=== PATIENT | female | born 1970 | race Caucasian/White ===

== ENCOUNTER → 2019-09-24 11:14 | Outpatient (CLI) | payer OTHER, SELFPAY ==
--- NOTE | ~2019-09-24 | MR_ITS ---
EXAMINATION: MR knee RT wo con DATE: 09/24/2019 11:49 INDICATION: Right knee pain TECHNIQUE: Magnetic resonance imaging (MRI) of the right knee was performed without intravenous contr ast. Sequences included coronal PD-weighted FSE, coronal PD-weighted FS FSE, sagittal T2-weighted FS E, sagittal PD-weighted FS FSE and axial PD weighted fat saturated FSE. COMPARISON: None. FINDINGS: Medial compartment: Small radial tear along the inner free edge of the posterior horn of the medial meniscus. Articular c artilage is normal. Lateral compartment: Lateral meniscus is normal. Mild chondral surface regularity along the central aspect of the lateral tibial plateau.. Patellofemoral compartment: Partial-thickness cartilage loss with deep fissuring at the medial facet and trochlear groove, the la tter with mild underlying subarticular edema. There is additional deep chondral ulceration at the inf erior aspect of the lateral patellar facet also with mild underlying subarticular edema. Deep chondra l ulceration extending a band across the inferior aspect of the trochlear groove and medial trochlea with irregular underlying articular cortex and mild subarticular edema and cystic changes. Ligaments and tendons: Anterior and posterior cruciate ligaments are normal. The medial collateral ligament and fibular nina ateral ligament complex are normal. The extensor mechanism is normal. The visualized medial and later al hamstring tendons as well as the iliotibial band are normal. Fluid: Physiologic amount of fluid in the joint space. No loose osteochondral bodies identified. Small Flood 's cyst. Osseous/other: Bone alignment is normal. No fracture or pathologic marrow replacing process. IMPRESSION: 1. Small radial tear involving the inner third of the posterior horn of the medial meniscus. 2. 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 Minimal osteoarthritis with low to moderate grade chondromalacia at the lateral compartment. 3. Small Flood's cyst. Reviewed, dictated and finalized at location A. IMPRESSION: 1. Small radial tear involving the inner third of the posterior horn of the med ial meniscus. 2. Mild to moderate osteoarthritis with high-grade chondral malacia in the johnson llofemoral compartment. Minimal osteoarthritis with low to moderate grade chond romalacia at the lateral compartment. 3. Small Flood's cyst.
== END ==
DX: M71.21 Synovial cyst of popliteal space [Baker], right knee (principal); M17.11 Unilateral primary osteoarthritis, right knee
CPT/HCPCS: 73721

== ENCOUNTER → 2019-11-16 10:15 | Outpatient (CLI) | payer OTHER, SELFPAY ==
--- NOTE | ~2019-11-16 | MM_ITS ---
EXAMINATION: MM screening [facility] BI w ameena HISTORY: Screening mammogram TECHNIQUE: Craniocaudal and mediolateral oblique 3-D tomosynthesis images were obtained and synthetic 2-D images were generated. CAD analysis was submitted and interpreted. COMPARISON: 11/03/2018, 11/04/2017, 11/09/2017, 08/16/2016 BREAST PARENCHYMAL COMPOSITION: There are scattered areas of fibroglandular density. FINDINGS: There is no evidence of suspicious mass, calcification, or architectural distortion to sugg est malignancy in either breast. There has been no suspicious interval change. IMPRESSION: 1. No mammographic evidence of malignancy. 2. Recommend routine screening mammography in one year. BI-RADS Category 1: Negative Reviewed, dictated and finalized at location A.
== END ==
PROVIDERS: Visit Provider Obstetrics & Gynecology Gynecology
DX: Z12.31 Encounter for screening mammogram for malignant neoplasm of breast (principal)
CPT/HCPCS: 77063; 77067

== ENCOUNTER → 2021-08-17 09:03 | Outpatient (CLI) | payer OTHER, SELFPAY ==
--- NOTE | ~2021-08-17 | MM_ITS ---
EXAMINATION: MM screening el BI w ameena HISTORY: Screening mammogram TECHNIQUE: Craniocaudal and mediolateral oblique 3-D tomosynthesis images were obtained and synthetic 2-D images were generated. CAD analysis was submitted and interpreted. COMPARISON: 11/12/2019, 11/03/2018 bilateral screening mammogram examinations BREAST PARENCHYMAL COMPOSITION: There are scattered areas of fibroglandular density. FINDINGS: There is no evidence of suspicious mass, calcification, or architectural distortion to sugg est malignancy in either breast. There has been no suspicious interval change. IMPRESSION: 1. No mammographic evidence of malignancy. 2. Recommend routine screening mammography in one year. BI-RADS Category 1: Negative Reviewed, dictated and finalized at location A.
== END ==
PROVIDERS: PCP Internal Medicine; Visit Provider Obstetrics & Gynecology Gynecology
DX: Z12.31 Encounter for screening mammogram for malignant neoplasm of breast (principal)
CPT/HCPCS: 77063; 77067

== ENCOUNTER 2021-10-01 13:43 | Emergency (ER) | payer OTHER, SELFPAY ==
--- NOTE | 2021-10-01 13:57 | ED.GENADULT ---
HPI - General Adult General Chief complaint: Urogenital-Female Stated complaint: uti complaint Time Seen by Provider: 10/01/21 14:15 Source: patient Mode of arrival: ambulatory Limitations: no limitations History of Present Illness HPI narrative: 51-year-old female patient presents to the [facility] with complaints of pain and burning on urination that started yesterday. Patient states she was treated at the end of August for UTI with Bactrim. Patient states they did not do a culture when she was treated in August. Patient states she does get UTIs frequently. Patient states she also had a UTI and colitis at the beginning of the year which she was treated for. Patient states its not the same pain as when she had the kidney stone. Patient states she did have blood in her urine but denies any low back pain. Denies any fevers, body aches or chills. Denies any lower abdominal pain. Related Data Home Medications Medication Instructions Recorded Confirmed desogestrel 0.15 mg-ethinyl 1 tablet DAILY 10/01/21 10/01/21 estradiol 0.03 mg tablet (Apri) Allergies Allergy/AdvReac Type Severity Reaction Status Date / Time No Known Allergies Allergy Verified 10/01/21 14:12 Review of Systems Review of Systems: CONSTITUTIONAL: Denies fever, chills, or sweats. EYES: Denies visual changes, redness, or discharge. ENT: Denies rhinorrhea, congestion, sore throat, or otalgia. CARDIOVASCULAR: Denies chest pain, palpitations, or edema. RESPIRATORY: Denies cough or dyspnea. GASTROINTESTINAL: Denies abdominal pain, nausea, vomiting, or diarrhea. GENITOURINARY: Positive dysuria or hematuria. SKIN: Denies rash or itching. MUSCULOSKELETAL: Denies back pain, joint pain, or myalgia. NEUROLOGIC: Denies headache, numbness, or weakness. PSYCHIATRIC: Denies anxiety or depression. [facility] Past Medical History Medical History (Updated 10/01/21 @ 14:28 by MAGGIE Turner) Colitis Frequent UTI Kidney stones Family History Family History (Updated 10/01/21 @ 13:58 by MAGGIE Turner) Other Cerebrovascular accident Diabetes mellitus Heart disease Hypertension Comments At the time of my signature I agree with nursing past medical history, surgical, social, and family history. There is no relevant family history pertinent to the presenting complaint. Exam Narrative: GENERAL: Well-appearing, well-nourished, and in no acute distress. HEAD: Normocephalic, atraumatic. EYES: PERRLA and EOMI. ENT: Nares clear, no rhinorrhea or epistaxis. Mucous membranes moist. NECK: Supple. No lymphadenopathy CHEST: Clear to auscultation. No respiratory distress. HEART: Regular rate and rhythm. No murmur heard. Normal peripheral pulses. ABDOMEN: Soft, nontender, nondistended, normal active bowel sounds. No CVA tenderness on percussion EXTREMITIES: Normal range of motion. No edema. SKIN: Warm, dry, no rash. NEURO: No focal deficits. Alert and oriented x3. Course Course Level of Care: Express Care Visit Vital Signs Vital signs: Vital Signs Temperature 37.2 C 10/01/21 13:58 Pulse Rate 79 10/01/21 13:58 Respiratory Rate 18 10/01/21 13:58 Blood Pressure 132/75 10/01/21 13:58 Pulse Oximetry 100 10/01/21 13:58 Oxygen Delivery Room Air 10/01/21 13:58 Temperature 37.2 C 10/01/21 13:58 Pulse Rate 79 10/01/21 13:58 Respiratory Rate 18 10/01/21 13:58 Blood Pressure 132/75 10/01/21 13:58 Pulse Oximetry 100 10/01/21 13:58 Oxygen Delivery Room Air 10/01/21 13:58 Vital signs reviewed Medical Decision Making MDM Narrative Medical decision making narrative: Discussed with patient that her urine could be suggestive of urinary tract infection. We will go ahead and send the urine off to the lab for culture. We will go ahead and start her on antibiotics today and encouraged her to drink plenty of fluid as well as take [id number] Tylenol and ibuprofen as needed for pain. Patient verbalized understandin
[2021-10-01 13:58] VITALS: BP 132/75; PULSE 79; RESP 18; TEMP 37.2; O2SAT 100
== END 2021-10-01 14:28 | disposition home or self-care (01) ==
PROVIDERS: Emergency Provider Nurse Practitioner Family; PCP Internal Medicine
DX: N39.0 Urinary tract infection, site not specified (principal)
CPT/HCPCS: 81003; 87077; 87086; 87088; 87186; 99213; G0463

== ENCOUNTER → 2022-09-06 10:10 | Outpatient (CLI) | payer OTHER, SELFPAY ==
--- NOTE | ~2022-09-06 | MM_ITS ---
EXAMINATION: MM screening el BI w ameena HISTORY: Screening mammogram TECHNIQUE: Craniocaudal and mediolateral oblique 3-D tomosynthesis images were obtained and synthetic 2-D images were generated. CAD analysis was submitted and interpreted. COMPARISON: 08/17/2021, 11/12/2019, 11/03/2018 bilateral screening mammogram examinations BREAST PARENCHYMAL COMPOSITION: There are scattered areas of fibroglandular density. FINDINGS: There is no evidence of suspicious mass, calcification, or architectural distortion to sugg est malignancy in either breast. There has been no suspicious interval change. IMPRESSION: 1. No mammographic evidence of malignancy. 2. Recommend routine screening mammography in one year. BI-RADS Category 1: Negative Reviewed, dictated and finalized at location A.
== END ==
PROVIDERS: PCP Nurse Practitioner; Visit Provider Nurse Practitioner
DX: Z12.31 Encounter for screening mammogram for malignant neoplasm of breast (principal)
CPT/HCPCS: 77063; 77067

== ENCOUNTER 2023-09-10 08:47 | Outpatient (CLI) | payer OTHER, SELFPAY ==
--- NOTE | ~2023-09-10 | MM_ITS ---
EXAMINATION: MM screening el BI w ameena HISTORY: Screening TECHNIQUE: Craniocaudal and mediolateral oblique 3-D tomosynthesis images were obtained and synthetic 2-D images were generated. CAD analysis was submitted and interpreted. COMPARISON: Comparison to multiple prior studies sequentially, with oldest reviewed study dated 10/2017. BREAST PARENCHYMAL COMPOSITION: Not dense: There are scattered areas of fibroglandular density. FINDINGS: There are developing asymmetries in the upper outer quadrant of the right breast. The left breast is stable without evidence for malignancy. IMPRESSION: 1. Developing right breast asymmetries. 2. Additional mammographic views and possible breast ultrasound are recommended. BI-RADS Category 0: Incomplete: Needs additional imaging evaluation. Reviewed, dictated and finalized at location B. IMPRESSION: 1. Developing right breast asymmetries. 2. Additional mammographic views and possible breast ultrasound are recommended . BI-RADS Category 0: Incomplete: Needs additional imaging evaluation.
== END 2023-09-10 08:48 ==
PROVIDERS: PCP Nurse Practitioner Family; Visit Provider Nurse Practitioner
DX: Z12.31 Encounter for screening mammogram for malignant neoplasm of breast (principal); R92.8 Other abnormal and inconclusive findings on diagnostic imaging of breast
CPT/HCPCS: 77063; 77067

== ENCOUNTER 2023-10-10 07:47 | Outpatient (CLI) | payer OTHER, SELFPAY ==
--- NOTE | ~2023-10-10 | MMUS_ITS ---
EXAMINATION: MM diagnostic el RT w ameena, US breast RT limited HISTORY: Follow-up right breast asymmetry TECHNIQUE: Additional 3-D tomosynthesis images of the right breast were performed and synthetic 2-D i mages were generated. CAD analysis was submitted and interpreted. High resolution Limited right breas t ultrasound was performed. COMPARISON: Comparison to multiple prior studies sequentially, with oldest reviewed study dated 09/09. BREAST PARENCHYMAL COMPOSITION: Not dense: There are scattered areas of fibroglandular density. FINDINGS: MAMMOGRAPHIC FINDINGS: There is a focal mass with architectural distortion in the upper outer quadrant of the right breast p osteriorly. There are no suspicious calcifications. ULTRASOUND: Limited right breast ultrasound: Normal heterogeneous echotexture without focal solid or cystic mass. IMPRESSION: 1. Focal 4 mm mass upper outer quadrant of the right breast posteriorly with surrounding architectura l distortion. No sonographic correlate. 2. Biopsy recommended utilizing neither wire localization with surgical excision or stereotactic tech nique. BI-RADS CATEGORY 4-SUSPICIOUS ABNORMALITY Reviewed, dictated and finalized at location B. IMPRESSION: 1. Focal 4 mm mass upper outer quadrant of the right breast posteriorly with david rrounding architectural distortion. No sonographic correlate. 2. Biopsy recommended utilizing neither wire localization with surgical excisio n or stereotactic technique. BI-RADS CATEGORY 4-SUSPICIOUS ABNORMALITY
== END 2023-10-10 07:48 ==
LOC: MICIMG 07:48
PROVIDERS: PCP Nurse Practitioner Family; Visit Provider Obstetrics & Gynecology Gynecology
DX: R92.8 Other abnormal and inconclusive findings on diagnostic imaging of breast (principal)
CPT/HCPCS: 76642; 77061; 77065; G0279